=== PATIENT | female | born 1990 | race Caucasian/White ===

== ENCOUNTER → 2019-07-16 10:22 | Outpatient (CLI) | payer OTHER, SELFPAY ==
[2019-07-16 12:14] LABS: Add Manual Diff / Slide Review NO; Basophils Absolute Auto 0 /uL (0-100); Eosinophils Absolute Auto 0 /uL (0-450); Eosinophils Percent Auto 0.9 % (2-4); Hematocrit 40.9 % (36-46); Hemoglobin 13.9 g/dL (12.0-16.0); Lymphocytes Absolute Auto 800 /uL (1100-4500); Lymphocytes Percent Auto 25.8 % (25-40); Mean Corpuscular Hemoglobin 30.5 PG (26-34); Mean Corpuscular Volume 89.5 fL (80-100); Monocytes Absolute Auto 300 /uL (0-900); Monocytes Percent Auto 8.6 % (3-14); Neutrophils Absolute Auto 2100 /uL (1500-7000); Neutrophils Percent Auto 63.7 % (50-75); Platelet Count 183 X10^3/uL (150-400); Red Blood Cell Count 4.57 X10^6/uL (4.0-5.2); Red Cell Distribution Width 12.8 % (11.6-14.8); White Blood Cell Count 3.3 X10^3/uL (4.5-11.0)
[2019-07-16 12:50] LABS: Erythrocyte Sedimentation Rate 1 MM/HR (0-20)
[2019-07-16 13:03] LABS: C-Reactive Protein Quant 0.6 mg/dL (<1.0)
[2019-07-16 13:41] LABS: Neutrophils Absolute Manual 1848 /uL (3000-5900); RBC Morphology Normal Morphology; Total Cells Counted 100
== END ==
PROVIDERS: Family Provider Family Medicine; PCP Family Medicine; Referring Provider Family Medicine; Visit Provider Family Medicine
DX: R63.4 Abnormal weight loss (principal); E03.8 Other specified hypothyroidism; E06.3 Autoimmune thyroiditis
CPT/HCPCS: 36415; 85025; 85651; 86140

== ENCOUNTER → 2024-11-06 11:23 | Outpatient (CLI) | payer BC, SELFPAY ==
[2024-11-06 12:58] LABS: Influenza A - CEPHEID Flu A NEGATIVE (NEGATIVE); Influenza B - CEPHEID Flu B NEGATIVE (NEGATIVE)
[2024-11-06 12:59] LABS: COVID-19 CEPHEID 4-PLEX PCR Negative (Negative)
== END ==
PROVIDERS: Family Provider Family Medicine; PCP Family Medicine; Visit Provider Chiropractor
DX: R05.1 Acute cough (principal); J02.9 Acute pharyngitis, unspecified
CPT/HCPCS: 87070; 87637